=== PATIENT | male | born 1950 | race Caucasian/White ===

== ENCOUNTER → 2021-05-18 11:38 | Outpatient (BNVA) | payer MEDICARE, BC, SELFPAY | PROVIDERS: PCP Nurse Practitioner Family; Visit Provider Specialist | DX: G31.84 Mild cognitive impairment of uncertain or unknown etiology (principal); G62.9 Polyneuropathy, unspecified; R42 Dizziness and giddiness; Z96.82 Presence of neurostimulator | CPT/HCPCS: 96116; 99205 ==